=== PATIENT | female | born 1985 | race Caucasian/White ===

== ENCOUNTER 2017-12-21 07:28 | Outpatient (CLI) | payer BC | END 2017-12-21 07:29 | disposition home or self-care (01) | LOC: BICMRI 07:28 | PROVIDERS: ATTEND Podiatrist | DX: S93.409A Sprain of unspecified ligament of unspecified ankle, initial encounter (principal); S93.609A Unspecified sprain of unspecified foot, initial encounter; S96.919A Strain of unspecified muscle and tendon at ankle and foot level, unspecified foot, initial encounter; M25.474 Effusion, right foot ==